=== PATIENT | female | born 1955 | race Caucasian/White ===

== ENCOUNTER → 2022-05-11 09:04 | Outpatient (BNVA) | payer MEDICARE, SELFPAY | PROVIDERS: PCP Family Medicine; Visit Provider Internal Medicine Rheumatology | DX: M06.9 Rheumatoid arthritis, unspecified (principal); Z11.59 Encounter for screening for other viral diseases; Z79.899 Other long term (current) drug therapy; I78.1 Nevus, non-neoplastic; K74.60 Unspecified cirrhosis of liver; Z71.85 Encounter for immunization safety counseling; Z11.1 Encounter for screening for respiratory tuberculosis; Z86.19 Personal history of other infectious and parasitic diseases | CPT/HCPCS: 36415; 73130; 73630; 80076; 82306; 82565; 85025; 85651; 86140; 86200; 86431; 86480; 86704; 86803; 87340; 87522; 99204; 99205 ==

== ENCOUNTER → 2023-01-02 12:41 | Outpatient (BNVA) | payer MEDICARE, SELFPAY | PROVIDERS: PCP Family Medicine; Visit Provider Internal Medicine Rheumatology | DX: I78.1 Nevus, non-neoplastic (principal); K74.60 Unspecified cirrhosis of liver; Z79.899 Other long term (current) drug therapy; Z71.85 Encounter for immunization safety counseling; M06.9 Rheumatoid arthritis, unspecified; Z86.19 Personal history of other infectious and parasitic diseases; Z79.52 Long term (current) use of systemic steroids | CPT/HCPCS: 99214 ==